=== PATIENT | female | born 1995 ===

== ENCOUNTER 2023-09-19 13:51 | Outpatient (CLI) | payer OTHER, SELFPAY | END 2023-09-19 13:52 | disposition home or self-care (01) | PROVIDERS: Visit Provider Registered Nurse | DX: Z01.419 Encounter for gynecological examination (general) (routine) without abnormal findings (principal); N91.2 Amenorrhea, unspecified; R03.0 Elevated blood-pressure reading, without diagnosis of hypertension; E66.01 Morbid (severe) obesity due to excess calories; F41.9 Anxiety disorder, unspecified; Z13.6 Encounter for screening for cardiovascular disorders | CPT/HCPCS: 82670; 83001; 83498; 84146; 84270; 84402; 84403; 84443 ==

== ENCOUNTER 2023-09-22 08:14 | Outpatient (CLI) | payer OTHER, SELFPAY | END 2023-09-22 08:15 | disposition home or self-care (01) | LOC: NFLDREF 09-24 05:56 | PROVIDERS: Visit Provider Registered Nurse | DX: Z13.220 Encounter for screening for lipoid disorders (principal) | CPT/HCPCS: 80061 ==